=== PATIENT | male | born 2000 | race Two or more races ===

== ENCOUNTER 2020-04-17 11:37 | Emergency (ER) | payer SELFPAY ==
[2020-04-17] MEDS ORDERED: Ibuprofen 600 MG Tab PO ONE (11:57)
[2020-04-17] MEDS ORDERED: Acetaminophen 325 MG Tab PO ONE (12:17)
--- NOTE | 2020-04-17 13:09 | CR ---
Chest: Portable view of the chest was obtained. Comparison: No previous chest imaging is available. Heart size and mediastinum are normal. Slight linear densities are seen within the right upper lung. Lungs otherwise are clear. Minimal scoliosis is noted within the spine. Impression: 1. Linear densities with a right upper lung. This may represent atelectasis or very early area of pneumonia. 2. No other acute finding is seen. Diagnostic code #3 This report was dictated in MDT
--- NOTE | 2020-04-17 13:54 | EDM.PDOC ---
ED HPI GENERAL MEDICAL PROBLEM - General Chief Complaint: Respiratory Problem Stated Complaint: COUGH/FEVER AND CHILLS Time Seen by Provider: 04/17/20 11:43 Source of Information: Reports: Patient History Limitations: Reports: No Limitations - History of Present Illness INITIAL COMMENTS - FREE TEXT/NARRATIVE: Patient is a 20-year-old male who presents to the emergency department with complaints of fever, chills, cough, and sore throat that began yesterday. States symptoms began initially as a sore throat and have progressed from there. Patient has a history of asthma and has been using his home inhaler as well as nebulizer treatments. He states he is are helping. He feels slightly short of breath, however states it is fairly typical for his asthma. Denies any signi ficant shortness of breath, nausea, vomiting, or diarrhea. He states that he had a cold exposure approximately 1 month ago, but has not had any known exposure since that time. No one in his family is sick at this time. On triage, patient was noted to be slightly tachycardic at 114 however, he also had a temperature of 101.9. He has not taken any antipyretics thus far today. States he took Aleve last evening. Blood pressure was stable at 138/90. Respiratory rate 20, oxygen saturation 95%. Throat Pain Score (Numeric/FACES): 7 - Related Data Allergies Allergy/AdvReac Type Severity Reaction Status Date / Time No Known Allergies Allergy Verified 04/17/20 11:55 Home Meds: Home Meds Azithromycin 250 mg PO ASDIRECTED 5 Days #6 tablet 04/17/20 [Rx] Loratadine [Claritin] 10 mg PO DAILY 04/17/20 [History] Montelukast [Singulair] 10 mg PO DAILY 04/17/20 [History] Past Medical History Respiratory History: Reports: Asthma Social & Family History - Family History Family Medical History: Noncontributory - Tobacco Use Smoking Status *Q: Never Smoker Second Hand Smoke Exposure: No - Caffeine Use Caffeine Use: Reports: Soda - Recreational Drug Use Recreational Drug Use: No ED ROS GENERAL - Review of Systems Review Of Systems: See Below Constitutional: Reports: Fever, Chills. Denies: Weakness, Decreased Appetite HEENT: Reports: Rhinitis, Throat Pain Respiratory: Reports: Shortness of Breath, Cough. Denies: Wheezing Cardiovascular: Reports: No Symptoms. Denies: Chest Pain, Lightheadedness Endocrine: Reports: No Symptoms GI/Abdominal: Reports: No Symptoms. Denies: Abdominal Pain, Diarrhea, Nausea, Vomiting : Reports: No Symptoms Musculoskeletal: Reports: No Symptoms Skin: Reports: No Symptoms Neurological: Reports: No Symptoms Psychiatric: Reports: No Symptoms Hematologic/Lymphatic: Reports: No Symptoms Immunologic: Reports: No Symptoms ED EXAM, GENERAL - Physical Exam Exam: See Below Exam Limited By: No Limitations General Appearance: Alert, WD/WN, No Apparent Distress Respiratory/Chest: No Respiratory Distress, Lungs Clear, Normal Breath Sounds, No Accessory Muscle Use, Chest Non-Tender Cardiovascular: Normal Peripheral Pulses, Regular Rate, Rhythm, No Edema, No Gallop, No JVD, No Murmur, No Rub Neurological: Alert, Oriented, CN II-XII Intact, Normal Cognition, Normal Gait, Normal Reflexes, No Motor/Sensory Deficits Psychiatric: Normal Affect, Normal Mood Skin Exam: Warm, Dry, Intact, Normal Color, No Rash Course - Vital Signs Last Recorded V/S: Last Vital Signs Temp 98.9 F 04/17/20 14:00 Pulse 114 H 04/17/20 11:49 Resp 20 04/17/20 11:49 BP 138/90 04/17/20 11:49 Pulse Ox 95 04/17/20 11:49 - Orders/Labs/Meds Orders: Active Orders 24 hr Category Date Time Status CORONAVIRUS COVID-19 PCR PHL Routine Lab 04/17/20 13:00 Received CULTURE STREP A CONFIRMATION [RM] Stat Lab 04/17/20 13:00 Results Rapid Strep w/culture conf [STREP SCRN A RAPID W CULT Lab 04/17/20 13:00 Results CONF] [RM] Stat Meds: Medications Discontinued Medications Generic Name Dose Route Start Last Admin Trade Name Freq PRN Reason Stop Dose Admin Acetaminophen 975 mg 04/17/20 12:17 04/17/20 13:04 Tylenol PO 04/17/20 12:18 975 mg NOW ONE Administration Ibuprofen 600 mg 04/17/20 11:57 04/17/20 13:04 Motrin PO 04/17/20 11:58 Not Given ONETIME ONE - Re-Assessments/Exams Free Text/Narrative Re-Assessment/Exam: Patient is a 20-year-old male who presents with complaints of fever, chills, sore throat, and cough that began yesterday. We will do a 1 view chest x-ray, strep screen, and a state lab coronavirus swab. I have ordered Tylenol 975 mg p.o. 04/17/20 13:52 1 view chest x-ray shows a linear density within the right upper lung. This may represent atelectasis or very early pneumonia. Strep screen was negative. On exam, patient's lung sounds are clear. Temperature had decreased to 100.4. Oxygen saturation has ranged from 95 to 99% on room air. Heart rate has been 100-110. Blood pressures remained stable. I will send a prescription for azithromycin to treat for early pneumonia. Discussed with patient that is a definite possibility he could have COVID. He will be notified when test results are available. Recommend that he self isolate, ensure adequate fluid intake, and use Tylenol as needed for fever. Return to the ER for any worsening symptoms. Departure - Departure Time of Disposition: 13:54 Disposition: Home, Self-Care 01 Condition: Good Clinical Impression: Pneumonia Qualifiers: Pneumonia type: due to unspecified organism Laterality: right Lung location: upper lobe of lung Qualified Code(s): J18.9 - Pneumonia, unspecified organism - Discharge Information *PRESCRIPTION DRUG MONITORING PROGRAM REVIEWED*: No *COPY OF PRESCRIPTION DRUG MONITORING REPORT IN PATIENT KEON: No Prescriptions: Azithromycin 250 mg PO ASDIRECTED 5 Days #6 tablet Instructions: Coronavirus Information 11/27/19, Community-Acquired Pneumonia, Adult, [id number] Referrals: PCP,Not In Area [Primary Care Provider] - Forms: ED Department Discharge Additional Instructions: You were seen in the emergency department today for fever, chills, cough, and sore throat. While in the ER, a chest x-ray, strep test, and COVID screen was done. You also received 975 mg of Tylenol in the ER. As we discussed, the results of your chest x-ray indicate a possible early pneumonia in your right lung. You have been prescribed a azithromycin to treat this. This has been sent electronically to [facility] in [facility]. Take this medication as prescribed and in its entirety. You have also been tested for Covid19. The results of this test may take up to 72 hours. Recommend that you self isolate. Ensure you are taking an adequate amount of fluid. Continue to use your previously prescribed asthma medications as needed. You may use [id number] Tylenol as needed for any fever or discomfort. If you should experience any worsening symptoms, such as respiratory distress or any other symptoms of concern, please do not hesitate to return to the emergency department. Sepsis Event Note (ED) - Evaluation Sepsis Screening Result: No Definite Risk - Focused Exam Vital Signs: Vital Signs Temp Pulse Resp BP Pulse Ox 04/17/20 14:00 98.9 F 04/17/20 11:49 101.9 F H 114 H 20 138/90 95 - My Orders Last 24 Hours: My Active Orders 04/17/20 13:00 CORONAVIRUS COVID-19 PCR PHL Routine CULTURE STREP A CONFIRMATION [RM] Stat Rapid Strep w/culture conf [STREP SCRN A RAPID W CULT CONF] [RM] Stat - Assessment/Plan Last 24 Hours: My Active Orders 04/17/20 13:00 CORONAVIRUS COVID-19 PCR PHL Routine CULTURE STREP A CONFIRMATION [RM] Stat Rapid Strep w/culture conf [STREP SCRN A RAPID W CULT CONF] [RM] Stat
== END 2020-04-17 14:10 | disposition home or self-care (01) ==
LOC: JD.ED 11:37
DX: J18.9 Pneumonia, unspecified organism (principal); Z20.828 Contact with and (suspected) exposure to other viral communicable diseases; Z79.899 Other long term (current) drug therapy
CPT/HCPCS: 71045; 87081; 87430; 87635; 99283; A9270; U0002